=== PATIENT | female | born 1970 | race Caucasian/White ===

== ENCOUNTER 2017-05-14 19:12 | Emergency (ER) | payer OTHER ==
[~2017-05-14] VITALS: Ht 160 cm; Wt 78.0 kg
[~2017-05-14 19:12] MED LIST: HYDR-3498 PO; NAPR-260 PO; NAPR500T8 PO; OMEP40CA6 PO
[2017-05-14 19:21] VITALS: Ht 160 cm; Wt 78.0 kg
[2017-05-14] MEDS ORDERED: IPRATROPIUM (NEB) 0.5 MG/2.5 ML AMP NEB STA (21:05)
[2017-05-14] MEDS ORDERED: ALBUTEROL 0.083% (NEB) 2.5 MG/3 ML AMP NEB STA (21:05)
--- NOTE | 2017-05-14 21:11 | ERD ---
ER Documentation Chief Complaint Date/Time DATE: 05/14/17 TIME: 21:09 Chief Complaint dry cough with sob x 3 days denies cp HPI 47-year-old female presents to emergency department for complaints of cough shortness breath and wheezing that has been going on for 3 days. Patient has been having dry cough, does not cough up any phlegm or blood. Patient denies any sore throat or ear pain. Patient does not have any sick contacts. Patient did not take any medications to help with symptoms. Patient denies any chest pain. ROS All systems reviewed and are negative except as per history of present illness. Medications Home Meds Active Scripts Naproxen* (Naprosyn*) 500 Mg Tablet, 500 MG PO BID Y for PAIN AND/OR INFLAMMATION, #30 TAB Prov:OCTAVIANO NERI PA-C 02/13/16 Hydrocodone Bit-Acetaminophen* ([place]*) 5-325 Mg Tab, 1 TAB PO Q6 Y for PAIN, # 7 TAB Prov:OCTAVIANO NERI PA-C 02/13/16 Reported Medications Omeprazole* (Omeprazole*) 40 Mg Capsule.dr, 40 MG PO DAILY 02/24/13 Naproxen* (Naproxen EC*) 500 Mg Tablet.dr, 500 MG PO Y 02/24/13 Allergies Allergies: Coded Allergies: acetaminophen (Verified Allergy, Intermediate, 05/14/17) atorvastatin (Verified Allergy, Intermediate, 05/14/17) hydrocodone (Verified Allergy, Intermediate, 05/14/17) amoxicillin (Verified Allergy, Mild, 05/14/17) gabapentin (Verified Allergy, Mild, 05/14/17) lansoprazole (Verified Allergy, Mild, 05/14/17) Sulfa (Sulfonamide Antibiotics) (Verified Allergy, Unknown, itching,rash, 05/14/17) ciprofloxacin (Verified Allergy, Unknown, SOB, palpitations, 05/14/17) PMhx/Soc History of Surgery: No Anesthesia Reaction: No Hx Neurological Disorder: No Hx Respiratory Disorders: No Hx Cardiac Disorders: Yes (HIGH CHOL ) Hx Psychiatric Problems: No Hx Alcohol Use: No Hx Substance Use: No Hx Tobacco Use: Yes Smoking Status: Never smoker FmHx Family History: No coronary disease, No diabetes, No other Physical Exam Vitals Vital Signs Date Time Temp Pulse Resp B/P Pulse Ox O2 Delivery O2 Flow Rate FiO2 05/14/17 21:11 92 22 96 21 05/14/17 19:21 99.4 93 18 129/65 96 Physical Exam GENERAL: The patient is well developed and appropriate for usual state of health, in no apparent distress. CHEST: Diffuse wheezing noted bilaterally. There are no rales, crackles or rhonchi. HEART: Regular rate and rhythm. No murmurs, clicks, rubs or gallops. No S3 or S4. ABDOMEN: Soft, nontender and nondistended. Good bowel sounds. No rebound or guarding. No gross peritonitis. No gross organomegaly or masses. No Gonzales sign or McBurney point tenderness. BACK: No midline or flank tenderness. EXTREMITIES: Equal pulses bilaterally. There is no peripheral clubbing, cyanosis or edema. No focal swelling or erythema. Full range of motion. Grossly neurovascularly intact. NEURO: Alert and oriented. Cranial nerves 2-12 intact. Motor strength in all 4 extremities with 5/5 strength. Sensation grossly intact. Normal speech and gait. SKIN: There is no apparent rash or petechia. The skin is warm and dry. HEMATOLOGIC AND LYMPHATIC: There is no evidence of excessive bruising or lymphedema. No gross cervical, axillary, or inguinal lymphadenopathy. Results 24 hrs Current Medications Medications (Trade) Dose Ordered Sig/Jasbir Route PRN Reason Start Time Stop Time Status Last Admin Dose Admin Albuterol (Proventil 0.083% (Neb)) 5 mg ONCE STAT NEB 05/14/17 21:05 05/14/17 21:06 DC 05/14/17 21:11 Ipratropium [place] (Atrovent 0.02% (Neb)) 0.5 mg ONCE STAT NEB 05/14/17 21:05 05/14/17 21:06 DC 05/14/17 21:11 Breathing treatment of albuterol and Atrovent was given here in emergency department, after treatment, patient's lungs sounds are clear and patient's oxygenation is better. Patient verbalized feeling much better. PROCEDURE: CHEST - 1 VIEW CLINICAL INDICATION: 47-year-old female with shortness of breath and asthma. TECHNIQUE: A single frontal AP upright portable view of the chest was performed. The images were reviewed on a PACS workstation. COMPARISON: Chest x-ray May 06, 2012. FINDINGS: The cardiomediastinal silhouette has a normal appearance. There is no evidence for an infiltrate. There is no evidence for congestive heart failure. There is no evidence for pneumothorax. The osseous structures are intact. IMPRESSION: No evidence for active cardiopulmonary disease. .Filiberto Camejo MD, Date Time Electronically viewed and signed by .Filiberto Camejo MD, on 05/14/2017 23:07 .M/ CC: [facility] [employer] [employer] Procedures/MDM Medical Decision Making: Patient symptoms are most likely consistent with acute bronchitis, which viral in origin. There is low suspicion for Pneumonia at this time since patients lungs sounds are clear, patient O2 saturation is normal and patient doesnt show any respiratory distress. Patients chest xray doesnt show infiltrates or any other cardiopulmonary emergencies at this time. There is low suspicion for other cardiopulmonary emergencies at this time such as CHF, Pulmonary Embolism, Pneumothorax, Aortic Aneurysm or any other cardiopulmonary emergencies at this time. There is low suspicion for sepsis. Patient appears well and is hemodynamically stable. Fever is controlled with medicines. Disposition: Home. Condition: Stable Prescriptions: Albuterol, Phenergan with codeine, Zyrtec Instructions: Patient is advised to take medications as prescribed. Patient is advised to rest. Patient advised to increase fluid intake, do humidifier at home and if possible, do salt water gargles. Patient is advised that if symptoms are worse, shortness of breath, uncontrolled fever, stridor, vomiting, worst signs and symptoms to return to emergency department immediately. Otherwise, patient is advised to follow up with primary doctor in 5-7 days. Disclaimer: Inadvertent spelling and grammatical errors are likely due to EHR/ dictation software use and do not reflect on the overall quality of patient care. Also, please note that the electronic time recorded on this note does not necessarily reflect the actual time of the patient encounter. Departure Diagnosis: Primary Impression: Acute bronchitis Bronchitis organism: unspecified organism Qualified Code: J20.9 - Acute bronchitis, unspecified organism Condition: Stable Patient Instructions: Bronchitis With Wheezing (Adult) [facility] NP May 14, 2017 21:11
--- NOTE | 2017-05-14 23:07 | RADRPT ---
PROCEDURE: CHEST - 1 VIEW CLINICAL INDICATION: 47-year-old female with shortness of breath and asthma. TECHNIQUE: A single frontal AP upright portable view of the chest was performed. The images were reviewed on a PACS workstation. COMPARISON: Chest x-ray May 06, 2012. FINDINGS: The cardiomediastinal silhouette has a normal appearance. There is no evidence for an infiltrate. There is no evidence for congestive heart failure. There is no evidence for pneumothorax. The osseou s structures are intact. IMPRESSION: No evidence for active cardiopulmonary disease. .Filiberto Camejo MD, Date Time Electronically viewed and signed by .Filiberto Camejo MD, on 05/14/2017 23:07 .Carl
[2017-05-14] MEDS ORDERED: CETI10TA34 PO (23:16)
[2017-05-14] MEDS ORDERED: ALBU8.5H3 INH (23:16)
[2017-05-14] MEDS ORDERED: PROM5SYR2 PO (23:16)
[2017-05-14 23:38] VITALS: BP 120/71; PULSE 77; RESP 18; TEMP 98
== END 2017-05-14 23:38 | disposition home or self-care (01) ==
LOC: FTE 19:12
DX: J20.9 Acute bronchitis, unspecified (principal)
CPT/HCPCS: 71010; 94664; Z7502; Z7610

== ENCOUNTER 2018-02-14 21:01 | Emergency (ER) | END 2018-02-14 23:10 | disposition home or self-care (01) ==

== ENCOUNTER 2018-07-23 08:42 | Emergency (ER) | END 2018-07-23 12:55 | disposition home or self-care (01) ==

== ENCOUNTER 2018-10-16 22:50 | Emergency (ER) | payer OTHER ==
[~2018-10-16] VITALS: Ht 162.6 cm; Wt 77.3 kg
[~2018-10-16 22:50] MED LIST changes: +CHOL100062 PO; +DICY10CA40 PO; +EZET10TA31 PO; +FENO145T37 PO; -HYDR-3498 PO; +HYDR-3980 PO; +LEVO50TA7 PO; -NAPR-260 PO; -NAPR500T8 PO; +OMEP20CA16 PO; -OMEP40CA6 PO; +THYR32.58 PO; +TOPI25CA2 PO
[2018-10-16 23:15] VITALS: Ht 162.6 cm; Wt 77.3 kg
[2018-10-17] MEDS ORDERED: ALBU18HF INHALATION (02:51)
[2018-10-17] MEDS ORDERED: HYDR-4011 PO (02:51)
[2018-10-17] MEDS ORDERED: PROM5SYR2 PO (02:51)
[2018-10-17] MEDS ORDERED: PROMETHAZINE/CODEINE 5ML CUP PO ONE (03:00)
[2018-10-17 03:51] VITALS: BP 130/71; PULSE 94; RESP 20
--- NOTE | 2018-10-18 12:27 | ERD ---
ER Documentation Chief Complaint Chief Complaint SOB WITH WHEEZING TODAY WITH COUGH/SORE THROAT HPI 48-year-old female presents with complaint of cough and wheezing. Patient said that she had a cold over the weekend and last Sunday she had a fever. Denies any current fever. States that the cough has been so bad that it has been causing her to have some pain when she coughs. She wants promethazine with codeine as she seems to have had in the past and it worked. Not taking any current treatments. Denies chest pain, shortness of breath, nausea, diaphoresis, dyspnea, hemoptysis. Allergic to penicillin and other drugs see allergy list, . ROS All systems reviewed and are negative except as per history of present illness. Medications Home Meds Active Scripts Albuterol Sulfate* (Ventolin HFA*) 18 Gm Hfa.aer.ad, 2 PUFF INHALATION Q4H, #1 INHALER Prov:JENNIFER LUKE 10/17/18 Promethazine HCl/Codeine (Prometh-Codein 6.25-10 mg/5 ml) 5 Ml Syrup, 5 ML PO Q6 for cough, #4 OZ Prov:JENNIFER LUKE 10/17/18 Dicyclomine HCl (Dicyclomine HCl) 10 Mg Capsule, 20 MG PO TID PRN for ABDOMINAL CRAMPING, #30 CAP Prov:RAMSES MOHAMUD DO 07/23/18 Hydrocodone/Acetaminophen ([place] 10-325 Tablet) 1 Each Tablet, 1 TAB PO Q6H PRN for PAIN, #20 TAB Prov:RAMSES MOHAMUD DO 07/23/18 Reported Medications Fenofibrate Nanocrystallized* (Fenofibrate*) 145 Mg Tablet, 130 MG PO DAILY, TAB 07/23/18 Cholecalciferol* (Vitamin D3*) 1,000 Unit Tablet, 1000 UNIT PO TWO TIMES PER WEEK, TAB 07/23/18 Topiramate* (Topiramate*) 25 Mg Cap.sprink, 25 MG PO BID, CAP 07/23/18 Ezetimibe* (Zetia*) 10 Mg Tablet, 10 MG PO HS, TAB 07/23/18 Thyroid,Pork (Nature-Throid) 32.5 Mg Tablet, 32.5 MG PO AC BREAKFAST, TAB 07/23/18 Levothyroxine Sodium* (Levothyroxine Sodium*) 50 Mcg Tablet, 50 MCG PO BEFORE BREAKFAST, #30 TAB 07/23/18 Omeprazole* (Omeprazole*) 20 Mg Capsule.dr, 20 MG PO AC BREAKFAST, #30 CAP 07/23/18 Allergies Allergies: Coded Allergies: atorvastatin (Verified Allergy, Intermediate, 05/14/17) amoxicillin (Verified Allergy, Mild, 05/14/17) gabapentin (Verified Allergy, Mild, 05/14/17) lansoprazole (Verified Allergy, Mild, 05/14/17) Penicillins (Verified Allergy, Unknown, 02/14/18) Sulfa (Sulfonamide Antibiotics) (Verified Allergy, Unknown, itching,rash, 05/14/17) ciprofloxacin (Verified Allergy, Unknown, SOB, palpitations, 05/14/17) PMhx/Soc History of Surgery: Yes (thyroidectomy,back sx) Anesthesia Reaction: No Hx Neurological Disorder: No Hx Respiratory Disorders: Yes (bronchitis) Hx Cardiac Disorders: Yes (high cholesterol) Hx Psychiatric Problems: No Hx Miscellaneous Medical Probl: Yes (goiter thyroid,gallstones,sciatica) Hx Alcohol Use: No Hx Substance Use: No Hx Tobacco Use: Yes (twice a week) Smoking Status: Current some day smoker FmHx Family History: No diabetes, No coronary disease, No other Physical Exam Vitals Vital Signs Date Temp Pulse Resp B/P (MAP) Pulse Ox O2 O2 Flow FiO2 Time Delivery Rate 10/17/18 98.3 94 20 130/71 98 Room Air 03:51 (90) 10/16/18 98.7 99 19 126/92 99 23:15 (103) Physical Exam const: No acute distress Head: Atraumatic Eyes: Normal Conjunctiva ENT: Normal External Ears, Nose and Mouth. Tonsils are nonedematous or erythematous bilaterally with no exudates. Uvula is midline with no peritonsillar masses. Neck: Full range of motion. No meningismus. No JVD. Equal breath sounds. Resp: Clear to auscultation bilaterally. Cardio: Regular rate and rhythm, no murmurs Abd: Soft, non tender, non distended. Normal bowel sounds Skin: No petechiae or rashes Back: No midline or flank tenderness Ext: No cyanosis, or edema Neur: Awake and alert Psych: Normal Mood and Affect Results 24 hrs Current Medications Medications Dose Sig/Jasbir Start Time Status Last (Trade) Ordered Route PRN Stop Time Admin Dose Reason Admin Promethazine 5 ml ONCE ONCE 10/17/18 DC HCl/ PO 03:00 Codeine 10/17/18 03:01 (Phenergan/ Codeine) Procedures/MDM DIAGNOSTIC IMAGING REPORT Patient: MISSAEL BUENROSTRO : 1970 Age: 48 Sex: F MR #: [id number] DOS: 10/17/18 0253 Ordering MD: JENNIFER LUKE [facility] Room/Bed: PROCEDURE: XR Chest. CLINICAL INDICATION: SOB TECHNIQUE: AP portable semi upright chest was obtained COMPARISON: Chest 05/06/2012 FINDINGS: Hypoventilatory chest. Heart normal limits in size. No evidence of pulmonary vascular congestion acute lung consolidation pleural effusions and pneumothorax. IMPRESSION: No evidence of acute cardiopulmonary disease. RPTAT:AAJJ Physician Darcy Date Time Electronically viewed and signed by Kiah Das Physician on 10/17/2018 03:23 BM/ CC: JENNIFER LUKE [phone] EKG: Rate/Rhythm: Normal Sinus Rhythm QRS, ST, T-waves: No changes consistent w/ acute ischemia Impression: No evidence of ischemia or arrhythmia 48-year-old female presents with complaint of cough and wheezing. Patient said that she had a cold over the weekend and last Sunday she had a fever. Denies any current fever. States that the cough has been so bad that it has been causing her to have some pain when she coughs. She wants promethazine with codeine as she seems to have had in the past and it worked. Not taking any current treatments. Denies chest pain, shortness of breath, nausea, diaphoresis, dyspnea, hemoptysis. Allergic to penicillin and other drugs see allergy list. Chest x-ray and EKG are performed, both within normal limits. I have low suspicion for strep throat based on history and exam findings, as well as patient not meeting centor criteria for rapid strep testing. I have low suspicion for bacterial sinusitis, pneumonia, tuberculosis, meningitis, pneumothorax, PE, aspirated foreign body, respiratory distress, acute heart failure or other life threatening etiology based on patient history and exam findings. Most likely etiology is viral URI and no further tests are necessary. Patient given rx for albuterol and promethazine with codeine.. Patient advised to rest and stay well hydrated. Patient discharged with strict ER precautions. Patient advised to follow up with PMD. All questions answered at discharge. Departure Diagnosis: Primary Impression: URI (upper respiratory infection) URI type: unspecified viral URI Qualified Codes: J06.9 - Acute upper respiratory infection, unspecified Condition: Stable Patient Instructions: Preventing Common Respiratory Infections Additional Instructions: FOLLOW UP WITH YOUR PRIMARY CARE PHYSICIAN TOMORROW.Return to this facility if you are not improving as expected. JENNIFER LUKE Oct 18, 2018 12:27
== END 2018-10-17 03:53 | disposition home or self-care (01) ==
LOC: FTE 22:50
DX: J06.9 Acute upper respiratory infection, unspecified (principal); F17.210 Nicotine dependence, cigarettes, uncomplicated
CPT/HCPCS: 71045; 93005; Z7502